=== PATIENT | male | born 1960 | race Caucasian/White ===

== ENCOUNTER → 2017-11-10 | Outpatient (CLI) | payer OTHER | LOC: CAT 10:48 | DX: R51 Headache (principal); E78.5 Hyperlipidemia, unspecified ==

== ENCOUNTER → 2019-11-10 | Outpatient (CLI) | payer OTHER ==
[~2019-11-10] MED LIST: ASPIRIN325 PO; CRESTOR20 MG PO; EFFIENT10 MG PO; METOPROLOL SUCC25 M1 PO; PRILOSEC OTC20 MG PO; SYNTHROID50 MCG PO; ZYRTEC 10 MG TA10 MG PO
== END ==
LOC: CAT 10:39
PROVIDERS: ATTEND Family Medicine
DX: I25.10 Atherosclerotic heart disease of native coronary artery without angina pectoris (principal); E78.00 Pure hypercholesterolemia, unspecified

== ENCOUNTER 2019-11-15 08:01 | Observation (INO) | payer OTHER ==
[~2019-11-15] VITALS: Ht 175.3 cm; Wt 76.7 kg
[2019-11-15] VITALS (13 sets, daily range): BP systolic 110–128; BP diastolic 62–78
[~2019-11-15 08:01] MED LIST changes: -ASPIRIN325 PO; -CRESTOR20 MG PO; -EFFIENT10 MG PO; -METOPROLOL SUCC25 M1 PO
--- NOTE | 2019-11-15 16:35 | EKG ---
[facility] [place] [address] ELECTROCARDIOGRAM REPORT Name: YURI ANAND Room #: 214-[facility] M.R.#: [id number] Admission: 11/15/19 Attend Phys: Solitario Fermin MD, Discharge: Date of : 58 Report #: [id number] THIS REPORT FOR: cc: Earl Hooper MD, Neal A. MD Lundgren,Daniel Ernandez MD [facility] ~ THIS REPORT FOR: //name// [facility] Test Date: 2019-11-15 Test Time: 08:27:16 Pat Name: YURI ANAND Department: Room: [facility] Gender: M Firmware Developer: ROCIO : 1960 Requested By: Solitario Fermin Order Number: [id number] MD: Daniel Stock Measurements Intervals [place] Rate: 63 P: 30 MA: 150 QRS: -1 QRSD: 103 T: 36 QT: 414 QTc: 424 Interpretive Statements Sinus rhythm Normal tracing No previous ECG available for comparison Electronically Signed On 11-15-2019 16:35:23 CDT by Daniel Stock [email or web address] <ELECTRONICALLY SIGNED> By: Daniel Stock MD, [facility] 11/15/19 1635 0827 6 Daniel Stock MD, [facility] /EPI
[2019-11-16 00:45] VITALS: BP 96/59
--- NOTE | 2019-11-16 04:02 | NUR ---
PT S/P CARDIAC CATH YESTERDAY. VSS, SOFT BPs. RIGHT GROIN C/D/I. DENIES CHEST PAIN. AOX4. PT ANTICIPATE TO DC HOME THIS AM. REMAINS SR/SB ON THE MONITOR. NO OTHER EVENTS OVERNIGHT. WILL CONTINUE TO FOLLOW POC
[2019-11-16 04:45] VITALS: BP 115/58
[2019-11-16 05:47] LABS: HEMATOCRIT 37.2 % (42.0-52.0); HEMOGLOBIN 12.4 gm/dL (14.0-18.0); MCH 29.9 pg (26.0-34.0); MCHC 33.4 g/dL (28.0-37.0); MCV 89.5 fL (80.0-100.0); RBC 4.16 mil/uL (4.50-6.00); RDW 13.8 % (10.5-14.5); WBC 7.3 thou/uL (4.0-11.0)
[2019-11-16 06:01] LABS: ALBUMIN 3.6 g/dL (3.4-5.0); ANION GAP 5 mmol/L (7-16); BUN 16 mg/dL (7-18); CALCIUM 8.8 mg/dL (8.5-10.1); CHLORIDE 102 mmol/L (98-107); CO2 29 mmol/L (21-32); CREATININE 1.2 mg/dL (0.7-1.3); GLUCOSE 84 mg/dL (74-106); POTASSIUM 4.1 mmol/L (3.5-5.1); SGOT 21 U/L (15-37); SGPT 24 U/L (30-65); SODIUM 136 mmol/L (136-145); TOTAL BILIRUBIN 0.2 mg/dL (0.2-1.0)
[2019-11-16] MEDS ORDERED: CRESTOR20 MG PO (07:34)
[2019-11-16] MEDS ORDERED: METOPROLOL SUCC25 M1 PO (07:34)
[2019-11-16] MEDS ORDERED: ASPIRIN325 PO (07:34)
[2019-11-16] MEDS ORDERED: EFFIENT10 MG PO (07:34)
--- NOTE | 2019-11-16 07:38 | EKG ---
[facility] [place] [address] ELECTROCARDIOGRAM REPORT Name: YURI ANAND Room #: 214-[facility] M.R.#: [id number] Admission: 11/15/19 Attend Phys: Solitario Fermin MD, Discharge: Date of : 58 Report #: [id number] THIS REPORT FOR: cc: Earl Hooper MD, Neal A. MD Lundgren,Daniel Ernandez MD [facility] ~ THIS REPORT FOR: //name// [facility] Test Date: 2019-11-16 Test Time: 07:21:46 Pat Name: YURI ANAND Department: Room: 214 Gender: M Production Scheduler: ROCIO : 1960 Requested By: Solitario Fermin Order Number: [id number] MD: Daniel Stock Measurements Intervals [place] Rate: 58 P: 33 AK: 150 QRS: 0 QRSD: 98 T: 32 QT: 423 QTc: 416 Interpretive Statements Sinus bradycardia Otherwise normal tracing Compared to ECG 11/15/2019 08:27:16 No significant changes Electronically Signed On 11-16-2019 7:37:50 CDT by Daniel Stock [email or web address] <ELECTRONICALLY SIGNED> By: Daniel Stock MD, [facility] 11/16/19 0737 0 0 Daniel Stock MD, [facility] /EPI
[2019-11-16 08:07] VITALS: BP 111/73
[2019-11-16 09:43] LABS: CHOLESTEROL 198 mg/dL (<200); HDL CHOLESTEROL 52 mg/dL (>40); LDL CHOLESTEROL 132 mg/dL (<100); TC:HDL 3.8 Ratio (Not establshd); TRIGLYCERIDE 72 mg/dL (<150); VLDL 14 mg/dL (<40)
--- NOTE | 2019-11-16 10:19 | NUR ---
RECEIVED PT'S CARE AROUND 0720; PT. ON BED; AOX4; DURING AM ASSESSMENT NO C/O PAIN; EDUCATED ABOUT FALL PREVENTIONS; [facility]STAND[facility]; AM MEDICATIONS GIVEN; EDUCATED ABOUT NEW MEDICATIONS; [facility] UND[facility]STAND[facility]; EDUCATED ABOUT POSSIBLE SIDE EFFECTS; [facility]. UND[facility]STANDING; D/C ORDERS ON PLACED; PER MIRYAM TONGSMAN PT. MIGHT BE D/C AFTER DR. CORONA ROUND ON PT; PT. EDUCATED ABOUT D/C PROCESS; [facility]; SB-SR ON THE MONITOR; ASSESSMENT CHARGED; FOLLOWING POC; WORKING ON D/C PAPERS;
[2019-11-16 10:22] VITALS: BP 111/73
--- NOTE | 2019-11-23 18:01 | CATHLAB ---
[facility] [address] [place] [address] INVASIVE PROCEDURE REPORT Name: YURI ANAND Charmaine Room #: 214-[facility] Christiane Hamilton#: [id number] Admission: 11/15/19 Attend Phys: Solitario Fermin MD, Discharge: 11/16/19 Date of : 58 Report #: [id number] THIS REPORT FOR: cc: Earl Hooper MD, Neal A. MD Mancuso, Gerald M. MD [facility] ~ APPROVED REPORT Study performed: 11/15/2019 10:33:07 Patient Details Patient Status: Out-Patient Room #: The patient is a 59 year-old male Event Personnel Solitario Fermin Product Management Analyst, Saad Valentine RN RN, Nelly Hadley RTR Monitor, Marie Whitfield RTR, TESTER OPERATOR HELPER Scrub Procedures Performed Art Access - R femoral artery* Left Heart Cath w/or w/o Coronaries [id number] [facility] Aortogram Abdominal Peripheral Angio 692931 HAIR Place w/wo Plasty Single LAD 654636 00409 Initial Mod Sed Same Phys/QHP Gr5y 042790 27484 Mod Sed Same Phys/QHP Ea 369755 Hemostasis w/ Mynx Indication Positive stress test Procedure Narrative The Right Groin^ was infiltrated with 1% Lidocaine subcutaneous anesthesia. A PINNACLE 6FR Sheath #[id number] sheath was inserted into the RFA^. Coronary angiography was performed using coronary diagnostic catheters. The right coronary system was accessed and visualized with a JR4 catheter. The left coronary system was accessed and visualized with a JL4 catheter. The left ventricle was accessed and visualized with a PIGTAIL catheter. Left ventriculogram was performed in 30 degree projection. An aortogram of the abdominal aorta was performed. Closure device was deployed with a 6 Fr MYNXGRIP 6/7F #[id number]. The patient tolerated the procedure well and there were no complications associated with the procedure. There was no hematoma. Intraoperative Conscious Sedation Sedation start time: 10:51 Case end Time: [facility] [address] [place] [address] INVASIVE PROCEDURE REPORT Name: ANANDYURI Room #: 214-[facility] IN [facility].#: [id number] Admission: 11/15/19 Attend Phys: Solitario Fermin, Discharge: 11/16/19 Date of : 58 Report #: [id number] 12:13 Fentanyl 100 mcg Versed 4 mg Fluoro Time: 9.32 minutes Dose: DAP 00669.20 cGycm2 1452 mGy Contrast Type and Amount: Omnipaque 250 ml Hemodynamics The aortic pressure is 122/73 mmHg with a mean of 97 mmHg. The left ventricular pressure is 156/6 mmHg with a mean of mmHg. The left ventricular end diastolic pressure is 17 mmHg. PCI Technique Lesion Percutaneous coronary intervention was performed on the proximal left anterior descending artery segment. A LAUNCHER 6FR EBU 3.5 #[id number] Guide Catheter was used to engage the ostium. A Luge Wire .014 x 182CM #[id number] Interventional Guidewire was used to cross the lesion. BALLOON DILATION A Balloon catheter Sprinter OTW 2.5 x 12 #[id number] was inserted and inflated up to 10.00atm for 18seconds. Additional Inflation: 10.00atm for 17seconds. STENT DEPLOYMENT A drug-eluting stent RESOLUTE MOHAN RX 2.75 X 12 #[id number] was inserted and inflated up to 14.00atm for 21seconds. Additional Inflation: 16.00atm for 19seconds. RESOLUTE MOHAN OTW 2.75 X 8 was deployed distal to 2.75 X 12 Resolute Mohan RX and inflated up to 8 jt for 16 seconds. Additional Inflation: 14 jt for 21 seconds. Additional Inflation: 16 jt for 18 seconds. POST STENT DEPLOYMENT BALLOON DILATION A Balloon catheter TREK NC OTW 3.0 X 12 #[id number] was inserted and inflated up to 18.00atm for 21seconds. Additional Inflation: 18.00atm for 19seconds. Conclusion #1. Successful PTCA stent of the proximal subtotaled LAD lesion placement of a 2.75 x 12 and 2.75 x 8 resolute Mohan slightly overlapping. Postdilated to 3.1 mm FERCHO grade III flow. This area followed by an eccentric 50 to 60% stenosis at a diagonal takeoff. Then wide patency is LAD extends around the apex. #2 mild ostial left main disease of 30% #3 circumflex OM is large but nondominant vessel with minimal disease. [facility] [place] [address] INVASIVE PROCEDURE REPORT Name: YURI ANAND Room #: 214-[facility] [place] M.R.#: [id number] Admission: 11/15/19 Attend Phys: Solitario Fermin, Discharge: 11/16/19 Date of : 58 Report #: [id number] #4 large dominant right coronary artery without any significant occlusive disease. #5 normal left jugular size with subtle anterior wall leg EF 55% #6 abdominal aorta is intact no evidence of aneurysm or significant plaquing. Renal arteries widely patent. Recommendations and plan: Continue aggressive risk factor modification. Moderate LAD disease with some residual distal disease. Proximal area of widely patent with stents. Dual antiplatelet therapy initiated. Patient is pain-free with EKG changes normalized. Transfer to CCU to follow post coronary stent protocol. <ELECTRONICALLY SIGNED> By: Solitario Fermin MD, FACC 11/23/191800 00 00 Solitario Fermin MD, FACC /INF
== END 2019-11-16 11:16 | disposition home or self-care (01) ==
LOC: CATH 08:01 → 2N 12:34
PROVIDERS: ADMIT Internal Medicine Cardiovascular Disease; ATTEND Internal Medicine Cardiovascular Disease
DX: I25.10 Atherosclerotic heart disease of native coronary artery without angina pectoris (principal); E78.5 Hyperlipidemia, unspecified

== ENCOUNTER → 2020-04-19 | Outpatient (CLI) | payer OTHER ==
[~2020-04-19] MED LIST changes: +ASPIRIN325 PO; +CRESTOR20 MG PO; +EFFIENT10 MG PO; +METOPROLOL SUCC25 M1 PO
== END ==
LOC: SJCVCIMAG 11:03
PROVIDERS: ATTEND Internal Medicine Cardiovascular Disease
DX: I25.10 Atherosclerotic heart disease of native coronary artery without angina pectoris (principal); K92.1 Melena; I10 Essential (primary) hypertension; E78.5 Hyperlipidemia, unspecified; Z68.25 Body mass index [BMI] 25.0-25.9, adult; Z98.61 Coronary angioplasty status

== ENCOUNTER → 2020-07-12 | Outpatient (CLI) | payer OTHER | LOC: BC 11:29 | PROVIDERS: ATTEND Family Medicine | DX: N62 Hypertrophy of breast (principal); N63.20 Unspecified lump in the left breast, unspecified quadrant ==